=== PATIENT | female | born 1980 | race Caucasian/White ===

== ENCOUNTER 2016-03-17 00:53 | Inpatient (IN) | payer OTHER ==
[2016-03-17] VITALS (15 sets, daily range): BP systolic 104–123; BP diastolic 63–83; PULSE 79–96; RESP 15–21; TEMP 97.7–98.7; O2SAT 94–100
[~2016-03-17] VITALS: Ht 165.1 cm; Wt 69.8 kg
[2016-03-17] MEDS ORDERED: ORTHTAB4 PO (01:11)
[2016-03-17] MEDS ORDERED: SODIUM CHLOR 0.9% 1000 ML INJ 1,000 ML IV ONE (01:15)
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
[2016-03-17 02:12] LABS: BLOOD, URINE TRACE (NEG); GLUCOSE,URINE NEG (NEG); KETONE, URINE NEG (NEG); NITRITE,URINE NEG (NEG); PH, URINE 5.5 (5.0-8.5); SQUAMOUS EPITHELIAL CELL URINE <1 /hpf (0-5); URINE COLOR COLORLESS (YELLW/STRAW)
[2016-03-17 02:15] LABS: COMMENT (UR) CULT NOT INDICATED; CULTURE IF INDICATED CULT NOT INDICATED
[2016-03-17 02:17] LABS: BASOPHIL # 0.1 TH/MM3 (0-0.2); BASOPHIL % 0.7 % (0.0-2.0); EOSINOPHIL # 0.2 TH/MM3 (0-0.4); EOSINOPHIL % 1.8 % (0.0-4.0); HEMATOCRIT 38.7 % (35.0-46.0); HEMO FLAGS DIFF FINAL; LYMPH % 24.7 % (9.0-44.0); LYMPHOCYTE # 2.3 TH/MM3 (1.0-4.8); MEAN CORPUSCULAR HEMOGLOBIN 29.1 PG (27.0-34.0); MEAN CORPUSCULAR HGB CONC 34.3 % (32.0-36.0); MONO % 7.8 % (0.0-8.0); PLATELET COUNT 321 TH/MM3 (150-450); RED BLOOD COUNT 4.55 MIL/MM3 (4.00-5.30); RED CELL DISTRIBUTION WIDTH 13.7 % (11.6-17.2); WHITE BLOOD COUNT 9.2 TH/MM3 (4.0-11.0)
[2016-03-17 02:18] LABS: AMPHETAMINE, URINE NEG (NEG); BARBITURATES, URINE NEG (NEG); COCAINE, URINE NEG (NEG)
[2016-03-17 02:28] LABS: ALT (GPT) 24 U/L (10-53); ANION GAP 8 MEQ/L (5-15); AST (GOT) 30 U/L (15-37); BICARBONATE 24.6 MEQ/L (21.0-32.0); BLOOD UREA NITROGEN 9 MG/DL (7-18); CHLORIDE 110 MEQ/L (98-107); GLOMERULAR FILTRATION RATE 88 ML/MIN (>89); POTASSIUM 3.6 MEQ/L (3.5-5.1); SODIUM (NA) 143 MEQ/L (136-145)
[2016-03-17 02:30] LABS: ALKALINE PHOSPHATASE 77 U/L (45-117); BETA HCG QUANT LESS THAN 1 MIU/ML (0-5); TOTAL BILIRUBIN ADULT 0.2 MG/DL (0.2-1.0)
[2016-03-17 02:32] LABS: ACETAMINOPHEN LESS THAN 2.0 MCG/ML (10.0-30.0)
--- NOTE | 2016-03-17 03:49 | RADRPT ---
EXAM DATE/TIME: 03/17/2016 02:46 [facility] COMPARISON: No previous studies available for comparison. INDICATIONS : Altered mental status. RADIATION DOSE: 44.64 CTDIvol (mGy) MEDICAL HISTORY : Non-responsive. SURGICAL HISTORY : Non-responsive. ENCOUNTER: Initial ACUITY: 1 day PAIN SCALE: 0/10 LOCATION: cranial TECHNIQUE: Multiple contiguous axial images were obtained of the head. Using automated exposure control and adj ustment of the mA and/or kV according to patient size, radiation dose was kept as low as reasonably a chievable to obtain optimal diagnostic quality images. FINDINGS: CEREBRUM: The ventricles are normal for age. No evidence of midline shift, mass lesion, hemorrhage or acute in farction. No extra-axial fluid collections are seen. POSTERIOR FOSSA: The cerebellum and brainstem are intact. The 4th ventricle is midline. The cerebellopontine angle i s unremarkable. EXTRACRANIAL: The visualized portion of the orbits is intact. SKULL: The calvaria is intact. No evidence of skull fracture. CONCLUSION: Negative noncontrast CT brain. Jasen Sauceda MD on March 17, 2016 at 3:40 Board Certified Radiologist. This report was verified electronically.
[2016-03-17 04:08] LABS: CREATINE KINASE 174 U/L (26-192)
--- NOTE | 2016-03-17 04:19 | RADRPT ---
EXAM DATE/TIME: 03/17/2016 04:01 [facility] COMPARISON: No previous studies available for comparison. INDICATIONS : Pt with altered mental status. MEDICAL HISTORY : None. SURGICAL HISTORY : None. ENCOUNTER: Initial ACUITY: 1 day PAIN SCORE: 7/10 LOCATION: Bilateral chest FINDINGS: A single view of the chest demonstrates the lungs to be symmetrically aerated without evidence of mas s, infiltrate or effusion. The cardiomediastinal contours are unremarkable. Osseous structures are intact. CONCLUSION: The lungs are clear. Jasen Sauceda MD on March 17, 2016 at 4:18 Board Certified Radiologist. This report was verified electronically.
[2016-03-17 04:37] LABS: CKMB 1.1 NG/ML (0.5-3.6)
[2016-03-17] MEDS ORDERED: DEXT 5%-NACL 0.45% 1000 ML INJ 1,000 ML IV SCH (04:51)
[2016-03-17] MEDS ORDERED: RESP: ALBUTEROL 2.5 MG/IPRATROPIUM 0.5 MG NEB (PRN) INH ×2 (05:00→08:15)
[2016-03-17] MEDS ORDERED: ONDANSETRON HCL 4 MG/2 ML VIAL IV PRN ×2 (05:00→08:15)
[2016-03-17] MEDS ORDERED: ACETAMINOPHEN 325 MG TAB PO PRN ×2 (05:00→08:15)
[2016-03-17] MEDS ORDERED: CHLORHEXIDINE GLUCONATE 2 % 1 PACK (2 CLOTHS) TOP PRN ×2 (05:00→08:15)
[2016-03-17] MEDS ORDERED: PROCHLORPERAZINE 25 MG SUPP RECTAL PRN (05:00)
[2016-03-17] MEDS ORDERED: SODIUM CHLORIDE 0.9% FLUSH 5 ML FLUSH IV FLUSH PRN ×2 (05:00→08:15)
[2016-03-17] MEDS ORDERED: MISCELLANEOUS NURSING INFORMATION XX SCH ×2 (05:00→08:15)
[2016-03-17] MEDS ORDERED: METOCLOPRAMIDE HCL 10 MG/2 ML VIAL IV PRN (05:00)
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
[2016-03-17] MEDS ORDERED: POTASSIUM CHLORIDE 10 MEQ CONTROLLED RELEASE TAB PO ONE (08:00)
[2016-03-17] MEDS ORDERED: HYDROmorphone HCL PF 1 MG/ML VIAL IV PRN (08:15)
[2016-03-17] MEDS ORDERED: ACETAMINOPHEN/HYDROcodone 325 MG/5 MG TAB PO PRN (08:15)
[2016-03-17] MEDS ORDERED: PANTOPRAZOLE SOD 40 MG DELAYED RELEASE TAB PO SCH (09:00)
[2016-03-17] MEDS: SODIUM CHLORIDE 0.9% FLUSH 5 ML FLUSH IV FLUSH SCH ×2 (09:00→20:27)
[2016-03-17] MEDS ORDERED: SODIUM CHLORIDE 0.9% FLUSH 5 ML FLUSH IV FLUSH SCH (09:00)
[2016-03-17] MEDS ORDERED: IOHEXOL 350 MG/ML 10 ML VIAL (for RAD DIAG) IV ONE (09:07)
[2016-03-17] MEDS: DOCUSATE SODIUM 100 MG CAP PO SCH ×2 (09:15→20:27)
[2016-03-17] MEDS: MULTIVITAMIN TAB PO SCH (09:16)
[2016-03-17] MEDS: FOLIC ACID 1 MG TAB PO SCH (09:16)
[2016-03-17] MEDS: PANTOPRAZOLE SOD 40 MG DELAYED RELEASE TAB PO SCH (09:16)
[2016-03-17] MEDS: THIAMINE HCL 100 MG TAB PO SCH (09:16)
[2016-03-17] MEDS: ENOXAPARIN SODIUM 40 MG/0.4 ML SYRINGE SQ SCH (09:16)
[2016-03-17] MEDS: SODIUM CHLOR 0.9% 1000 ML INJ 1,000 ML IV SCH ×2 (09:27→20:27)
--- NOTE | 2016-03-17 09:38 | RADRPT ---
EXAM DATE/TIME: 03/17/2016 08:54 [facility] COMPARISON: CHEST SINGLE AP, March 17, 2016, 4:01. INDICATIONS : Syncopal episode with apnea, possible cardiac arrest; evaluate for pulmonary embolism. IV CONTRAST: 49 cc Omnipaque 350 (iohexol) IV RADIATION DOSE: CTDIvol (mGy) MEDICAL HISTORY : None SURGICAL HISTORY : None. ENCOUNTER: Initial ACUITY: 1 day PAIN SCALE: 0/10 LOCATION: chest TECHNIQUE: Volumetric scanning of the chest was performed using a pulmonary embolism protocol MIP images were re constructed. Using automated exposure control and adjustment of the mA and/or kV according to patien t size, radiation dose was kept as low as reasonably achievable to obtain optimal diagnostic quality images. FINDINGS: PULMONARY ARTERIES: No filling defects are seen in the pulmonary arteries through the segmental level. LUNGS: There is no consolidation or pneumothorax . No concerning pulmonary nodule is visualized. PLEURAE: There is no pleural thickening or pleural effusion. MEDIASTINUM: There is good visualization of the great vessels of the middle mediastinum. No evidence of mediastin al or hilar adenopathy/mass. MUSCULOSKELETAL: Within normal limits for patient age. MISCELLANEOUS: The visualized upper abdominal organs demonstrate no acute abnormality. Breast implants are present. CONCLUSION: No PE is identified. Additionally, no acute finding is visualized. Jeff Singh MD on March 17, 2016 at 9:34 Board Certified Radiologist. This report was verified electronically.
--- NOTE | 2016-03-17 09:53 | RADRPT ---
EXAM DATE/TIME: 03/17/2016 09:13 [facility] COMPARISON: No previous studies available for comparison. INDICATIONS : Bilateral leg swelling. MEDICAL HISTORY : Leg edema. Alcohol intoxication. Panic attacks. SURGICAL HISTORY : Right knee surgery. ENCOUNTER: Initial ACUITY: 1 day PAIN SCORE: 0/10 LOCATION: Bilateral legs. TECHNIQUE: Venous ultrasound of the left and right leg was performed from the inguinal ligament to the proximal calf. Real-time, color Doppler and spectral tracing, compression and augmentation techniques were us ed. FINDINGS: RIGHT LEG: There is normal compressibility of the deep venous system from the inguinal region to the proximal ca lf. No echogenic clot is seen in the lumen of the common femoral, femoral, popliteal, and posterior tibial veins. There is a normal response of the venous system to proximal and distal augmentation an d respiration. LEFT LEG: There is normal compressibility of the deep venous system from the inguinal region to the proximal ca lf. No echogenic clot is seen in the lumen of the common femoral, femoral, popliteal, and posterior tibial veins. There is a normal response of the venous system to proximal and distal augmentation an d respiration. CONCLUSION: No DVT is identified within either lower extremity. Jeff Singh MD on March 17, 2016 at 9:51 Board Certified Radiologist. This report was verified electronically.
[2016-03-17 11:19] LABS: MAGNESIUM 2.1 MG/DL (1.5-2.5)
--- NOTE | 2016-03-17 12:38 | EC ---
Study Study Date:03/17/2016 STUDY CONCLUSIONS SUMMARY - Left ventricle: The cavity size was normal. Wall thickness was normal. Systolic function was normal. The estimated ejection fraction was in the range of 60% to 65%. Wall motion was normal; there were no regional wall motion abnormalities. - Aortic valve: Valve area: 1.47cm^2(VTI). Valve area: 1.36cm^2 (Vmax). - Mitral valve: Valve area by continuity equation (using LVOT flow): 1.38cm^2. If LV function is below 40, please consider prescribing an ACEI or ARB or document rationale for non-use. PROCEDURE DATA STUDY STATUS: Elective. Procedure: Transthoracic echocardiography. Image quality was good. Scanning was performed from the parasternal, apical, and subcostal acoustic windows. Study completion: The patient tolerated the procedure well. Transthoracic echocardiography. M-mode, complete 2D, complete spectral Doppler, and color Doppler. Height: Height: 66in. Weight: Weight: 139.7lb. Body mass index: BMI: 22.6kg/m^2. Body surface area: BSA: 1.72m^2. Patient status: Inpatient. CARDIAC ANATOMY LEFT VENTRICLE: The cavity size was normal. Wall thickness was normal. Systolic function was normal. The estimated ejection fraction was in the range of 60% to 65%. Wall motion was normal; there were no regional wall motion abnormalities. AORTIC VALVE: Trileaflet; normal thickness leaflets. Doppler: Transvalvular velocity was within the normal range. There was no stenosis. No regurgitation. Valve area: 1.47cm^2(VTI). Indexed valve area: 0.85cm^2/m^2 (VTI). Valve area: 1.36cm^2 (Vmax). Indexed valve area: 0.79cm^2/m^2 (Vmax). Mean gradient: 3mm Hg (S). AORTA: Aortic root: The aortic root was normal in size. MITRAL VALVE: Structurally normal valve. Doppler: Transvalvular velocity was within the normal range. There was no evidence for stenosis. No regurgitation. Valve area by continuity equation (using LVOT flow): 1.38cm^2. Indexed valve area by continuity equation (using LVOT flow): 0.8cm^2/m^2. Mean gradient: 2mm Hg (D). Peak gradient: 4mm Hg (D). LEFT ATRIUM: The atrium was normal in size. RIGHT VENTRICLE: The cavity size was normal. Wall thickness was normal. PULMONIC VALVE: Doppler: Transvalvular velocity was within the normal range. There was no evidence for stenosis. No regurgitation. TRICUSPID VALVE: Structurally normal valve. Doppler: Transvalvular velocity was within the normal range. No regurgitation. PULMONARY ARTERY: The main pulmonary artery was normal-sized. Systolic pressure was within the normal range. RIGHT ATRIUM: The atrium was normal in size. PERICARDIUM: There was no pericardial effusion. SYSTEMIC VEINS: Inferior vena cava: The vessel was normal in size. Patient weight: 139.7lb _Ejection fraction:_ 65-75% _Fractional shortening:_ 32% up to 5Kg 5-11.5Kg 11.6-22.9Kg 23-45Kg 45-57Kg Aortic Root 7-13 <17 13-22 17-27 17-27 LA diam 6-13 <23 24-38 33-47 37-40 RVID 10-17 7-15 7-15 7-18 8-17 LVIDd 12-22 <32 24-38 33-47 37-40 LVPW 2-4 3-6 5-7 6-8 7-8 IVS 2-4 3-6 5-7 6-8 7-8 BASIC MEASUREMENTS ADULT NORMAL Left ventricle LV internal dimension, ED, chordal 43.5 mm 43-52 level, PLAX LV internal dimension, ES, chordal 28.6 mm 23-38 level, PLAX Fractional shortening, chordal level, 34 % >29 PLAX LV posterior wall thickness, ED 8.03 mm IVS/LVPW ratio, ED 1.01 <1.3 Ventricular septum Septal thickness, ED 8.09 mm Aortic valve Leaflet separation 19 mm 15-26 Aorta Root diameter, ED 27 mm Left atrium Anterior-posterior dimension 31 mm Anterior-posterior dimension index 1.8 cm/m^2 <2.2 BASIC MEASUREMENTS ADULT NORMAL Aortic valve Leaflet separation 19 mm 15-26 DOPPLER MEASUREMENTS ADULT NORMAL Aortic valve Peak velocity, S 119 cm/s Mean velocity, S 85.8 cm/s VTI, S 24.1 cm Mean gradient, S 3 mm Hg Valve area, VTI 1.47 cm^2 Valve area index, VTI 0.85 cm^2/m^2 Valve area, Vmax 1.36 cm^2 Valve area index, Vmax 0.79 cm^2/m^2 Mitral valve Peak E-wave velocity 71.6 cm/s Peak A-wave velocity 63.2 cm/s Mean velocity, D 63.6 cm/s Deceleration time *144 ms 150-230 Mean gradient, D 2 mm Hg Peak gradient, D 4 mm Hg Peak E/A ratio 1.1 Valve area, LVOT continuity 1.38 cm^2 Valve area index, LVOT continuity 0.8 cm^2/m^2 Pulmonic valve Peak velocity, S 66.9 cm/s LEGEND: Mean values are shown as u=mean value. Asterisk (*) patrick values outside specified normal range. Prepared and signed by Jordan Pemberton [id number]
[2016-03-18] VITALS (8 sets, daily range): BP systolic 87–104; BP diastolic 50–72; PULSE 64–78; RESP 16–21; TEMP 97.8–98.3; O2SAT 96–98
[2016-03-18 03:58] LABS: AUTOMATED NEUTROPHIL # 6.1 TH/MM3 (1.8-7.7); BASOPHIL % 0.2 % (0.0-2.0); EOSINOPHIL # 0.2 TH/MM3 (0-0.4); EOSINOPHIL % 2.6 % (0.0-4.0); HEMATOCRIT 36.9 % (35.0-46.0); HEMO FLAGS DIFF FINAL; LYMPH % 23.8 % (9.0-44.0); LYMPHOCYTE # 2.2 TH/MM3 (1.0-4.8); MEAN CORPUSCULAR HEMOGLOBIN 28.8 PG (27.0-34.0); MEAN CORPUSCULAR HGB CONC 33.5 % (32.0-36.0); MONO % 8.7 % (0.0-8.0); NEUT % 64.7 % (16.0-70.0); PLATELET COUNT 289 TH/MM3 (150-450); RED CELL DISTRIBUTION WIDTH 13.9 % (11.6-17.2); WHITE BLOOD COUNT 9.4 TH/MM3 (4.0-11.0)
[2016-03-18] MEDS ORDERED: CHLORHEXIDINE GLUCONATE 2 % 1 PACK (2 CLOTHS) TOP SCH ×2 (04:00)
[2016-03-18] MEDS: ENOXAPARIN SODIUM 40 MG/0.4 ML SYRINGE SQ SCH (04:24)
[2016-03-18 04:28] LABS: ALKALINE PHOSPHATASE 84 U/L (45-117); ALT (GPT) 20 U/L (10-53); ANION GAP 8 MEQ/L (5-15); AST (GOT) 15 U/L (15-37); BICARBONATE 27.1 MEQ/L (21.0-32.0); BLOOD UREA NITROGEN 9 MG/DL (7-18); CHLORIDE 107 MEQ/L (98-107); GLOMERULAR FILTRATION RATE 93 ML/MIN (>89); HDL CHOLESTEROL 96.5 MG/DL (40.0-60.0); LDL CHOLESTEROL 45 MG/DL (0-99); POTASSIUM 3.5 MEQ/L (3.5-5.1); SODIUM (NA) 142 MEQ/L (136-145); TOTAL BILIRUBIN ADULT 0.5 MG/DL (0.2-1.0)
[2016-03-18] MEDS: SODIUM CHLORIDE 0.9% FLUSH 5 ML FLUSH IV FLUSH SCH (09:00)
[2016-03-18] MEDS: PANTOPRAZOLE SOD 40 MG DELAYED RELEASE TAB PO SCH (10:38)
[2016-03-18] MEDS: MULTIVITAMIN TAB PO SCH (10:38)
[2016-03-18] MEDS: THIAMINE HCL 100 MG TAB PO SCH (10:38)
[2016-03-18] MEDS: DOCUSATE SODIUM 100 MG CAP PO SCH (10:39)
[2016-03-18] MEDS: FOLIC ACID 1 MG TAB PO SCH (10:39)
--- NOTE | 2016-03-18 13:00 | HHI.PR ---
Subjective Remarks up and ambulating around, voiding spontaneously denies any chronic medical illness states she was aware of the event and that she did not pass out her friend who apparently performed CPR was also drunk however I told her that the doccumentation was she had a cardiac arrest Objective Vitals Vital Signs Date Time Temp Pulse Resp B/P Pulse Ox O2 Delivery O2 Flow Rate FiO2 03/18/16 12:00 68 03/18/16 10:00 78 03/18/16 08:00 98.0 76 20 103/68 98 03/18/16 08:00 76 03/18/16 06:00 67 03/18/16 04:00 98.3 67 21 89/60 98 03/18/16 04:00 67 03/18/16 02:00 64 03/18/16 00:00 68 03/18/16 00:00 97.8 68 21 87/50 98 03/17/16 22:00 93 03/17/16 20:00 98.3 79 19 108/72 97 03/17/16 20:00 79 03/17/16 19:00 80 15 107/67 97 03/17/16 18:00 86 21 123/63 94 03/17/16 18:00 86 03/17/16 17:00 80 18 120/64 96 03/17/16 16:00 86 03/17/16 16:00 98.6 86 19 109/64 97 03/17/16 15:00 80 17 113/70 97 03/17/16 14:00 88 15 116/73 97 03/17/16 14:00 80 I/O 03/17/16 03/17/16 03/17/16 03/18/16 03/18/16 03/18/16 07:00 15:00 23:00 07:00 15:00 23:00 Intake Total 280 ml 962 ml 675 ml Output Total 400 ml Balance -120 ml 962 ml 675 ml Intake Oral 120 ml 320 ml 50 ml IV Total 160 ml 642 ml 625 ml Output Urine Total 400 ml # Voids 1 1 0 # Bowel Movements 0 Result Diagram: 03/18/[id number] Imaging Last Impressions Lower Extremity Ultrasound 03/17/16 0000 Signed Impressions: Service Date/Time: Thursday, March 17, 2016 09:13 - CONCLUSION: No DVT is identified within either lower extremity. Jeff Singh MD Head CT 03/17/16 0000 Signed Impressions: Service Date/Time: Thursday, March 17, 2016 02:46 - CONCLUSION: Negative noncontrast CT brain. Jasen Sauceda MD Chest X-Ray 03/17/16 0000 Signed Impressions: Service Date/Time: Thursday, March 17, 2016 04:01 - CONCLUSION: The lungs are clear. Jasen Sauceda MD CT Angiography 03/17/16 0000 Signed Impressions: Service Date/Time: Thursday, March 17, 2016 08:54 - CONCLUSION: No PE is identified. Additionally, no acute finding is visualized. Jeff Singh MD Objective Remarks awake and alert, oriented x 3 anicteric no carotid bruit lungs clear regular rhythm abdomen soft, nontender extremities no edema neuro exam- unremarkable A/P Problem List: (1) Cardiac arrest ICD Code: I46.9 Status: Acute (2) Alcohol intoxication ICD Code: F10.129 Status: Acute Assessment and Plan 35 years old female- no chronic medical illness Alleged Cardiac arrest- patient refute this states she is cognizant of entire event Initial troponin negative. We'll cycle again every 8 hours 2 Echocardiogram unremarkable Seen by Cardiology- will defer to them for need of further work up if warranted No murmurs appreciated on physical evaluation. VS stable Alcohol intoxication- denies chronic use monitor Currently receiving thiamine/smoldering of folate daily 3 days. Low likelihood for DTs. CT head 03/17 revealed no acute intracranial findings. Chest x-ray 03/17 revealed no acute cardio pulmonary findings. Will check CT angiogram of the chest to rule out pulmonary malaise him Incentive spirometry while awake regular diet transfer to medical Problem Qualifiers (1) Alcohol intoxication: Qualified Code: F10.129 - Alcohol intoxication, with unspecified complication Delroy Frye MD Mar 18, 2016 13:00
--- NOTE | 2016-03-18 14:50 | PD.CARD.PN ---
Subjective Subjective Remarks alert in nad Objective Vital Signs / I&O Vital Signs Date Time Temp Pulse Resp B/P Pulse Ox O2 Delivery O2 Flow Rate FiO2 03/18/16 14:00 78 03/18/16 12:00 98.2 68 16 104/72 96 03/18/16 12:00 68 03/18/16 10:00 78 03/18/16 08:00 98.0 76 20 103/68 98 03/18/16 08:00 76 03/18/16 06:00 67 03/18/16 04:00 98.3 67 21 89/60 98 03/18/16 04:00 67 03/18/16 02:00 64 03/18/16 00:00 68 03/18/16 00:00 97.8 68 21 87/50 98 03/17/16 22:00 93 03/17/16 20:00 98.3 79 19 108/72 97 03/17/16 20:00 79 03/17/16 19:00 80 15 107/67 97 03/17/16 18:00 86 21 123/63 94 03/17/16 18:00 86 03/17/16 17:00 80 18 120/64 96 03/17/16 16:00 86 03/17/16 16:00 98.6 86 19 109/64 97 03/17/16 15:00 80 17 113/70 97 I/O 03/17/16 03/17/16 03/17/16 03/18/16 03/18/16 03/18/16 07:00 15:00 23:00 07:00 15:00 23:00 Intake Total 280 ml 962 ml 675 ml 849 ml Output Total 400 ml 1000 ml Balance -120 ml 962 ml 675 ml -151 ml Intake Oral 120 ml 320 ml 50 ml 240 ml IV Total 160 ml 642 ml 625 ml 609 ml Output Urine Total 400 ml 1000 ml # Voids 1 1 0 2 # Bowel Movements 0 0 Laboratory GENERAL: SKIN: Warm and dry. HEAD: Normocephalic. EYES: No scleral icterus. No injection or drainage. NECK: Supple, trachea midline. No JVD or lymphadenopathy. CARDIOVASCULAR: Regular rate and rhythm without murmurs, gallops, or rubs. RESPIRATORY: Breath sounds equal bilaterally. No accessory muscle use. GASTROINTESTINAL: Abdomen soft, non-tender, nondistended. MUSCULOSKELETAL: No cyanosis, or edema. BACK: Nontender without obvious deformity. No CVA tenderness. Laboratory Tests Test 03/17/16 03/18/16 19:47 03:17 Troponin I LESS THAN 0.02 NG/ML White Blood Count 9.4 TH/MM3 Red Blood Count 4.30 MIL/MM3 Hemoglobin 12.4 GM/DL Hematocrit 36.9 % Mean Corpuscular Volume 86.0 FL Mean Corpuscular Hemoglobin 28.8 PG Mean Corpuscular Hemoglobin 33.5 % Concent Red Cell Distribution Width 13.9 % Platelet Count 289 TH/MM3 Mean Platelet Volume 7.7 FL Neutrophils (%) (Auto) 64.7 % Lymphocytes (%) (Auto) 23.8 % Monocytes (%) (Auto) 8.7 % Eosinophils (%) (Auto) 2.6 % Basophils (%) (Auto) 0.2 % Neutrophils # (Auto) 6.1 TH/MM3 Lymphocytes # (Auto) 2.2 TH/MM3 Monocytes # (Auto) 0.8 TH/MM3 Eosinophils # (Auto) 0.2 TH/MM3 Basophils # (Auto) 0.0 TH/MM3 CBC Comment DIFF FINAL Differential Comment Sodium Level 142 MEQ/L Potassium Level 3.5 MEQ/L Chloride Level 107 MEQ/L Carbon Dioxide Level 27.1 MEQ/L Anion Gap 8 MEQ/L Blood Urea Nitrogen 9 MG/DL Creatinine 0.72 MG/DL Estimat Glomerular Filtration 93 ML/MIN Rate Random Glucose 92 MG/DL Calcium Level 7.8 MG/DL Total Bilirubin 0.5 MG/DL Aspartate Amino Transf 15 U/L (AST/SGOT) Alanine Aminotransferase 20 U/L (ALT/SGPT) Alkaline Phosphatase 84 U/L Total Protein 5.9 GM/DL Albumin 2.8 GM/DL Triglycerides Level 68 MG/DL Cholesterol Level 155 MG/DL LDL Cholesterol 45 MG/DL HDL Cholesterol 96.5 MG/DL Cholesterol/HDL Ratio 1.60 RATIO Assessment and Plan Problem List: (1) Cardiac arrest (2) Alcohol intoxication Assessment and Plan 1.) Cardiac arrest by report, no documented arrythmia, stable on telemetry; i recommended c due to cardiac arrest, patient refused Problem Qualifiers (1) Alcohol intoxication: Qualified Code: F10.129 - Alcohol intoxication, with unspecified complication Jordan Pemberton MD Mar 18, 2016 14:50
--- NOTE | 2016-03-19 21:02 | EKG ---
Date Performed: 03/17/2016 Time Performed: 17:32:10 PTAGE: 35 years EKG: Sinus rhythm LOW QRS VOLTAGE IN PRECORDIAL LEADS BORDERLINE ECG PREVIOUS TRACING : 03/17/2016 03.47 Compared to prior tracing no significant change DOCTOR: Christiano Robb Interpretating Date/Time 03/19/2016 21:01:40
--- NOTE | 2016-03-19 22:10 | EKG ---
Date Performed: 03/17/2016 Time Performed: 03:47:15 PTAGE: 35 years EKG: Sinus rhythm LOW QRS VOLTAGE IN PRECORDIAL LEADS BORDERLINE ECG NO PREVIOUS TRACING DOCTOR: Christiano Robb Interpretating Date/Time 03/19/2016 22:09:47
--- NOTE | 2016-03-22 08:31 | MB ---
cc: MONICA HUANG M.D. DATE OF CONSULTATION 03/17/2016 REASON FOR CONSULTATION Rene is a very pleasant 35-year-old lady who is in the temporarily in [place] on a transport mission. She went to a bar, had a loss of consciousness. Witnessed bystander present was in an EMS trained individual. The patient was assessed as being apneic and pulseless. CPR was initiated. No EKG or rhythm was documented at the time. The patient regained a pulse and was transported to [facility]. Since admission, the patient has not had any evidence of unstable cardiac rhythm. Her chief complaint is nasal and upper airway congestion. She thinks she has a sinus infection. She was found to have a markedly elevated alcohol level in her blood. She otherwise denies any GI/ bleeding, paroxysmal nocturnal dyspnea, orthopnea, dizziness or chest pain. PAST MEDICAL HISTORY Per history of present illness. ALLERGIES None MEDICATIONS Ortho Tri-Cyclen SOCIAL HISTORY She does drink alcohol. Denies tobacco use. MEDICATIONS In the hospital: 1. Pantoprazole 40 daily 2. Thiamine 100 daily 3. Multivitamins daily 4. Folic acid 1 mg daily 5. Docusate 100 b.i.d. 6. Lovenox 40 subcu q24h PHYSICAL EXAM VITAL SIGNS: Blood pressure 112/66, pulse 83, respiratory rate 16, temperature 97.8. GENERAL: She is alert and oriented x3 in mild distress. NECK: Supple. No JVD. No bruit. CARDIOVASCULAR: S1, S2. No murmurs, rubs or gallops. LUNGS: Clear to auscultation bilaterally. ABDOMEN: Soft, nontender, and nondistended with positive bowel sounds. EXTREMITIES: No lower extremity edema. LABORATORY DATA White count 9.2, hemoglobin 13.3, hematocrit 38.7, platelet count 321. Sodium 143, potassium 3.6, chloride 110, bicarb 24.6, BUN 9, creatinine 0.75. LFTs normal. Troponin is less than 0.02. HCG less than one. TSH is 1.380. Toxicology is positive for ethyl alcohol level of 224. Lower extremity ultrasound, no DVT is identified within either lower extremity. Head CT, negative noncontrast CT the brain. Chest x-ray, the lungs are clear. CTA angiography, no pulmonary embolism is identified. Additionally, no acute finding is visualized. FINAL DIAGNOSIS 1. Alcohol toxicity 2. Syncope 3. Apnea 4. Hypotension 5. Cardiac arrest 6. Sinus infection 7. Bronchitis DISCUSSION There is no documentation of any cardiac arrhythmia, however, the patient was hooked up to monitor at the time of her syncopal event. Recommend continuing telemetry monitoring. Suspect her presentation was due to alcohol toxicity as her ethyl alcohol level was markedly elevated. Otherwise, recommend continued electrolyte monitoring and repletion p.r.n., telemetry monitoring. Repletion of electrolytes p.r.n. Also note, her echocardiogram read by myself showed an EF of 60-65%. MD DELFINO Lin/BINH /1:06 PM /8:15 AM
== END 2016-03-18 14:30 | disposition left against medical advice (07) | DRG 894 ==
LOC: NEPE 00:53 → NEDA 04:56 → NEDH 12:03 → HIME 12:50
PROVIDERS: ADMIT Internal Medicine; ATTEND Internal Medicine
DX: F10.129 Alcohol abuse with intoxication, unspecified (principal); I46.8 Cardiac arrest due to other underlying condition; Y90.7 Blood alcohol level of 200-239 mg/100 ml
CPT/HCPCS: 70450; 71010; 71275; 80053; 80061; 80307; 80320; 80329; 81001; 82550; 82552; 83605; 83735; 84100; 84443; 84484; 84702; 85025; 87641; 93005; 93306; 93970; 96360; G0480; G0481; J1650; J7030; Q9967